=== PATIENT | female | born 1955 | race Hispanic/Latino ===

== ENCOUNTER 2022-01-17 14:07 | Outpatient (CLI) | payer BC ==
[~2022-01-17 14:07] MED LIST: Iopamidol-370 76% 500 ML 1 ML ONE
[2022-01-17 14:52] LABS: Estimated GFR-MDRD - POC Greater than 90
== END 2022-01-17 14:08 | disposition home or self-care (01) ==
LOC: BICCT 14:07
PROVIDERS: ATTEND Student in an Organized Health Care Education/Training Program
DX: C09.9 Malignant neoplasm of tonsil, unspecified (principal); R91.1 Solitary pulmonary nodule; J98.4 Other disorders of lung
CPT/HCPCS: 70491; 71250; 82565; Q9967

== ENCOUNTER 2022-02-08 10:21 | Outpatient (CLI) | payer BC ==
[2022-02-08 11:45] LABS: Hemoglobin 13.8 g/dL (12.0-15.5); Mean Corpuscular HGB CONC 33.4 g/dL (32.0-36.0); Mean Corpuscular Volume 89.8 fl (81.6-98.3); Mean Platelet Volume 9.1 fl (7.4-10.4); Platelet Count 306 10x3/uL (150-450); RBC Distribution Width 12.9 % (11.5-14.5); White Blood Cell (WBC) Count 6.6 10x3/uL (3.5-10.5)
[2022-02-08 12:09] LABS: Anion Gap 14 mmol/L (10-20); BUN (Urea Nitrogen) 9 mg/dL (9.8-20.1); Calc. Creatinine Clearance 0 mL/min (70-130); Calcium 9.3 mg/dL (7.8-10.44); Carbon Dioxide 25 mmol/L (23-31); Chloride 102 mmol/L (98-107); Estimated GFR 95; Glucose 81 mg/dL (80-115); Potassium 4.2 mmol/L (3.5-5.1); Sodium 137 mmol/L (136-145)
== END 2022-02-08 10:22 | disposition home or self-care (01) ==
LOC: LABBT 10:21
PROVIDERS: ATTEND Student in an Organized Health Care Education/Training Program
DX: Z01.818 Encounter for other preprocedural examination (principal); C80.1 Malignant (primary) neoplasm, unspecified; R59.0 Localized enlarged lymph nodes; R13.10 Dysphagia, unspecified; R07.0 Pain in throat; Z20.822 Contact with and (suspected) exposure to COVID-19
CPT/HCPCS: 80048; 85027; 87811; 93005; 93010

== ENCOUNTER 2022-02-22 09:28 | Outpatient (CLI) | payer MEDICARE ==
[2022-02-22 11:32] LABS: Hemoglobin 13.1 g/dL (12.0-15.5); Mean Corpuscular HGB CONC 34.1 g/dL (32.0-36.0); Mean Corpuscular Volume 90.8 fl (81.6-98.3); Mean Platelet Volume 9.1 fl (7.4-10.4); Platelet Count 379 10x3/uL (150-450); RBC Distribution Width 13.1 % (11.5-14.5); Red Blood Cell (RBC) Count 4.23 10x6/uL (3.90-5.03); White Blood Cell (WBC) Count 5.9 10x3/uL (3.5-10.5)
[2022-02-22 11:49] LABS: Anion Gap 15 mmol/L (10-20); BUN (Urea Nitrogen) 8 mg/dL (9.8-20.1); Calc. Creatinine Clearance 0 mL/min (70-130); Calcium 9.4 mg/dL (7.8-10.44); Carbon Dioxide 27 mmol/L (23-31); Chloride 102 mmol/L (98-107); Estimated GFR 94; Glucose 92 mg/dL (80-115); Potassium 4.2 mmol/L (3.5-5.1); Sodium 140 mmol/L (136-145)
== END 2022-02-22 09:29 | disposition home or self-care (01) ==
LOC: LABBT 09:28
PROVIDERS: ATTEND Student in an Organized Health Care Education/Training Program
DX: Z01.812 Encounter for preprocedural laboratory examination (principal); C80.1 Malignant (primary) neoplasm, unspecified; R59.0 Localized enlarged lymph nodes; R07.0 Pain in throat; R13.10 Dysphagia, unspecified; Z20.822 Contact with and (suspected) exposure to COVID-19
CPT/HCPCS: 80048; 85027; 87811

== ENCOUNTER 2022-02-27 07:21 | Day surgery (SDC) | payer BC, MEDICARE ==
[2022-02-23 11:41] VITALS: BMI 19.7
[2022-02-27] MEDS ORDERED: SUGAMMADEX SODIUM 200 MG/2 ML VIAL ONE (09:09)
[2022-02-27] MEDS ORDERED: Famotidine/PF 20 mg/2ml Vial ONE (09:09)
[2022-02-27] MEDS ORDERED: fentaNYL Citrate/PF 100 MCG/2 ML SYRINGE ONE (09:09)
[2022-02-27] MEDS ORDERED: Metoclopramide HCl 10 MG/2 ML VIAL ONE (09:42)
[2022-02-27] MEDS ORDERED: Lidocaine 1% PF 5 ML VIAL ONE (09:42)
[2022-02-27] MEDS ORDERED: Ondansetron PF 4 MG/2 ML Vial ONE (09:42)
[2022-02-27] MEDS ORDERED: ePHEDrine 50 MG/ML VIAL ONE (09:42)
[2022-02-27] MEDS ORDERED: PROPOFOL 200 MG/20 ML VIAL ONE (09:42)
[2022-02-27] MEDS ORDERED: Dexamethasone 20 MG/5 ML VIAL ONE (09:42)
[2022-02-27] MEDS ORDERED: Oxymetazoline HCl 0.05% (30 ML BOT) ONE (10:01)
[2022-02-27] MEDS ORDERED: EPINEPHrine 1 MG/ML AMP ONE ×2 (10:07→10:11)
[2022-02-27] MEDS ORDERED: Fentanyl 100 MCG/2 ML VIAL ONE (10:41)
[2022-02-27] MEDS ORDERED: Hydrocodone-Acetamin 15 ML UDCUP ONE (12:08)
== END 2022-02-27 12:45 | disposition home or self-care (01) ==
LOC: SDC 07:21
PROVIDERS: ATTEND Student in an Organized Health Care Education/Training Program
PROC: 0CBM8ZX Excision of Pharynx, Via Natural or Artificial Opening Endoscopic, Diagnostic (ICD-10-PCS; principal; 2022-02-27)
DX: C01 Malignant neoplasm of base of tongue (principal); C09.9 Malignant neoplasm of tonsil, unspecified; F17.210 Nicotine dependence, cigarettes, uncomplicated; R59.0 Localized enlarged lymph nodes
CPT/HCPCS: 88305; 88341; 88342; J0171; J1100; J2405; J2704; J2765; J3010; J3490; S0028

== ENCOUNTER 2022-03-29 08:00 | Outpatient (CLI) | payer MEDICARE | END 2022-03-29 08:01 | disposition home or self-care (01) | LOC: PET 08:00 | PROVIDERS: ATTEND Radiology Radiation Oncology | DX: C01 Malignant neoplasm of base of tongue (principal); C09.9 Malignant neoplasm of tonsil, unspecified; R94.8 Abnormal results of function studies of other organs and systems | CPT/HCPCS: 78815; A9552 ==

== ENCOUNTER 2022-05-18 05:59 | Day surgery (SDC) | payer MEDICARE ==
[2022-05-16 14:46] VITALS: BMI 20.9
[2022-05-18] MEDS ORDERED: Bupivacaine HCl 0.5%/Epinephrine 1:200,000/PF 30 ml Vial ONE (06:47)
[2022-05-18] MEDS ORDERED: Lidocaine 1% PF 5 ML VIAL ONE (06:47)
[2022-05-18] MEDS ORDERED: PROPOFOL 40 ML ONE ×2 (06:58→07:12)
[2022-05-18] MEDS ORDERED: Famotidine/PF 20 mg/2ml Vial ONE (07:12)
[2022-05-18] MEDS ORDERED: fentaNYL Citrate/PF 100 MCG/2 ML SYRINGE ONE (07:12)
[2022-05-18] MEDS ORDERED: Ketorolac Tromethamine 30 MG/ML VIAL ONE (07:34)
[2022-05-18] MEDS ORDERED: CEFAZOLIN 2 GM VIAL ONE (07:34)
[2022-05-18] MEDS ORDERED: Sodium Chloride 0.9% 100 ML ONE (07:34)
[2022-05-18] MEDS ORDERED: PROPOFOL 200 MG/20 ML VIAL ONE (07:43)
[2022-05-18] MEDS ORDERED: ePHEDrine 50 MG/ML VIAL ONE (07:43)
[2022-05-18] MEDS ORDERED: Metoclopramide HCl 10 MG/2 ML VIAL ONE (07:43)
[2022-05-18] MEDS ORDERED: Ondansetron PF 4 MG/2 ML Vial ONE (07:43)
== END 2022-05-18 10:04 | disposition home or self-care (01) ==
LOC: SDC 05:59
PROVIDERS: ATTEND Specialist
PROC: 02HV33Z Insertion of Infusion Device into Superior Vena Cava, Percutaneous Approach (ICD-10-PCS; principal; 2022-05-18)
PROC: B518ZZA Fluoroscopy of Superior Vena Cava, Guidance (ICD-10-PCS; 2022-05-18)
PROC: 0DH63UZ Insertion of Feeding Device into Stomach, Percutaneous Approach (ICD-10-PCS; 2022-05-18)
DX: C02.9 Malignant neoplasm of tongue, unspecified (principal); E46 Unspecified protein-calorie malnutrition; R13.11 Dysphagia, oral phase; F17.210 Nicotine dependence, cigarettes, uncomplicated; Z85.038 Personal history of other malignant neoplasm of large intestine; Z79.899 Other long term (current) drug therapy; Z98.51 Tubal ligation status; Z98.890 Other specified postprocedural states; Z20.822 Contact with and (suspected) exposure to COVID-19
CPT/HCPCS: 71045; C1788; J0690; J1642; J1885; J2405; J2704; J2765; J3490; S0028

== ENCOUNTER 2022-06-25 13:39 | Day surgery (SDC) | payer MEDICARE ==
[2022-06-25] MEDS ORDERED: diphenhydrAMINE 25 MG CAP PO SCH (14:15)
[2022-06-25] MEDS ORDERED: Acetaminophen 500 MG TAB PO SCH (14:15)
[2022-06-25] MEDS ORDERED: diphenhydrAMINE 25 MG CAP ONE (14:29)
[2022-06-25] MEDS ORDERED: Acetaminophen 500 MG TAB ONE (14:29)
[2022-06-25 17:51] VITALS: BP 145/68; TEMP 98.9
== END 2022-06-25 17:54 | disposition home or self-care (01) ==
LOC: ONC/OP 13:39
PROVIDERS: ATTEND Internal Medicine Hematology & Oncology
PROC: 30233N1 Transfusion of Nonautologous Red Blood Cells into Peripheral Vein, Percutaneous Approach (ICD-10-PCS; principal; 2022-06-25)
DX: D64.9 Anemia, unspecified (principal); D69.6 Thrombocytopenia, unspecified
CPT/HCPCS: 36430; 80053; 83735; 86850; 86900; 86901; J1642; P9016

== ENCOUNTER 2022-09-04 12:53 | Outpatient (CLI) | payer MEDICARE | END 2022-09-04 12:54 | disposition home or self-care (01) | LOC: RAD 12:53 | PROVIDERS: ATTEND Radiology Radiation Oncology | DX: R13.10 Dysphagia, unspecified (principal); R63.30 Feeding difficulties, unspecified | CPT/HCPCS: 74230 ==

== ENCOUNTER → 2022-09-04 | Outpatient (CLI) | payer MEDICARE | LOC: PET 09:30 | PROVIDERS: ATTEND Radiology Radiation Oncology | DX: C01 Malignant neoplasm of base of tongue (principal); Z92.21 Personal history of antineoplastic chemotherapy | CPT/HCPCS: 78815; A9552 ==

== ENCOUNTER 2022-11-15 10:52 | Outpatient (CLI) | payer MEDICARE | END 2022-11-15 10:53 | disposition home or self-care (01) | LOC: BICMAMMO 10:52 | PROVIDERS: ATTEND Radiology Radiation Oncology | DX: Z12.31 Encounter for screening mammogram for malignant neoplasm of breast (principal); Z85.89 Personal history of malignant neoplasm of other organs and systems | CPT/HCPCS: 77063; 77067 ==

== ENCOUNTER 2022-12-14 08:14 | Outpatient (CLI) | payer MEDICARE ==
[2022-12-14] MEDS ORDERED: Iopamidol 370 76% 100 ML VIAL ONE (10:49)
== END 2022-12-14 08:15 | disposition home or self-care (01) ==
LOC: CT 08:14
PROVIDERS: ATTEND Radiology Radiation Oncology
DX: C09.9 Malignant neoplasm of tonsil, unspecified (principal); C02.9 Malignant neoplasm of tongue, unspecified; H74.91 Unspecified disorder of right middle ear and mastoid
CPT/HCPCS: 70491; 71260; Q9967

== ENCOUNTER 2023-03-11 08:00 | Outpatient (CLI) | payer MEDICARE | END 2023-03-11 08:01 | disposition home or self-care (01) | LOC: RAD 08:00 | PROVIDERS: ATTEND Student in an Organized Health Care Education/Training Program | DX: R13.13 Dysphagia, pharyngeal phase (principal); R13.12 Dysphagia, oropharyngeal phase; R63.39 Other feeding difficulties; J38.4 Edema of larynx | CPT/HCPCS: 74230 ==

== ENCOUNTER 2023-04-03 12:21 | Outpatient (CLI) | payer MEDICARE ==
[~2023-04-03 12:21] MED LIST changes: -Iopamidol-370 76% 500 ML 1 ML ONE; +Iopamidol-370 76% 500 ML MDV (1 ML CHARGE) ONE
== END 2023-04-03 12:22 | disposition home or self-care (01) ==
LOC: BICCT 12:21
PROVIDERS: ATTEND Student in an Organized Health Care Education/Training Program
DX: C01 Malignant neoplasm of base of tongue (principal); Z92.3 Personal history of irradiation
CPT/HCPCS: 70491; 82565; Q9967

== ENCOUNTER 2023-09-19 09:15 | Day surgery (SDC) | payer MEDICARE ==
[2023-09-17 10:50] VITALS: BMI 20.2
[2023-09-19] MEDS ORDERED: PROPOFOL 60 ML ONE (10:12)
[2023-09-19] MEDS ORDERED: PROPOFOL 40 ML ONE (11:10)
[2023-09-19] MEDS ORDERED: Midazolam HCl 2 mg/2 ml Vial ONE (11:41)
== END 2023-09-19 13:30 | disposition home or self-care (01) ==
LOC: SDC 09:15
PROVIDERS: ATTEND Internal Medicine Gastroenterology
PROC: 0DBN8ZZ Excision of Sigmoid Colon, Via Natural or Artificial Opening Endoscopic (ICD-10-PCS; principal; 2023-09-19)
PROC: 0DBL8ZZ Excision of Transverse Colon, Via Natural or Artificial Opening Endoscopic (ICD-10-PCS; 2023-09-19)
PROC: 0DB58ZX Excision of Esophagus, Via Natural or Artificial Opening Endoscopic, Diagnostic (ICD-10-PCS; 2023-09-19)
PROC: 0D758ZZ Dilation of Esophagus, Via Natural or Artificial Opening Endoscopic (ICD-10-PCS; 2023-09-19)
PROC: 0DP68UZ Removal of Feeding Device from Stomach, Via Natural or Artificial Opening Endoscopic (ICD-10-PCS; 2023-09-19)
PROC: 0DH63UZ Insertion of Feeding Device into Stomach, Percutaneous Approach (ICD-10-PCS; 2023-09-19)
DX: Z12.11 Encounter for screening for malignant neoplasm of colon (principal); D12.5 Benign neoplasm of sigmoid colon; K63.5 Polyp of colon; K64.8 Other hemorrhoids; K44.9 Diaphragmatic hernia without obstruction or gangrene; K22.2 Esophageal obstruction; K57.30 Diverticulosis of large intestine without perforation or abscess without bleeding; K94.29 Other complications of gastrostomy; C02.9 Malignant neoplasm of tongue, unspecified; Z87.891 Personal history of nicotine dependence
CPT/HCPCS: 88305; J2250; J2704

== ENCOUNTER 2024-07-13 12:09 | Outpatient (CLI) | payer MEDICARE | END 2024-07-13 12:10 | disposition home or self-care (01) | LOC: BICCT 12:09 | PROVIDERS: ATTEND Radiology Radiation Oncology | DX: C01 Malignant neoplasm of base of tongue (principal); R91.8 Other nonspecific abnormal finding of lung field | CPT/HCPCS: 36415; 70491; 71260; 82565 ==

== ENCOUNTER 2025-07-02 09:47 | Outpatient (CLI) | payer MEDICARE | END 2025-07-02 09:48 | disposition home or self-care (01) | LOC: RAD 09:47 | PROVIDERS: ATTEND Radiology Radiation Oncology | DX: C09.9 Malignant neoplasm of tonsil, unspecified (principal); J38.7 Other diseases of larynx | CPT/HCPCS: 74230 ==

== ENCOUNTER 2025-07-19 08:01 | Outpatient (CLI) | payer MEDICARE ==
[2025-07-19 08:43] LABS: Estimated GFR - POC 68.0
[2025-07-19] MEDS ORDERED: Iopamidol 370 76% 100 ML VIAL ONE (10:04)
== END 2025-07-19 08:02 | disposition home or self-care (01) ==
LOC: CT 08:01
PROVIDERS: ATTEND Radiology Radiation Oncology
DX: C01 Malignant neoplasm of base of tongue (principal); R91.8 Other nonspecific abnormal finding of lung field
CPT/HCPCS: 36415; 70491; 71260; 82565 ×2; Q9967